=== PATIENT | female | born 1950 | race Two or more races ===

== ENCOUNTER → 2018-01-31 | Outpatient (CLI) | payer OTHER ==
[~2018-01-31] MED LIST: AMOX1TAB5; CLARITIN-D 121 EACH; FIORICET 50-301 EACH; LEVBID0.375 MG; ZUPLENZ4 MG
== END | disposition home or self-care (01) ==
LOC: NUCLEAR 11:50
DX: Z13.820 Encounter for screening for osteoporosis (principal); M81.0 Age-related osteoporosis without current pathological fracture

== ENCOUNTER 2018-03-11 08:22 | Outpatient (CLI) | payer OTHER | END 2018-03-11 08:29 | disposition home or self-care (01) | LOC: LAB 08:22 | DX: C34.11 Malignant neoplasm of upper lobe, right bronchus or lung (principal); I87.2 Venous insufficiency (chronic) (peripheral); R87.619 Unspecified abnormal cytological findings in specimens from cervix uteri; N18.1 Chronic kidney disease, stage 1 ==

== ENCOUNTER 2018-05-20 14:52 | Outpatient (CLI) | payer OTHER | END 2018-05-20 15:30 | disposition home or self-care (01) | LOC: NUCLEAR 14:52 | DX: I82.613 Acute embolism and thrombosis of superficial veins of upper extremity, bilateral (principal) ==